=== PATIENT | male | born 1960 | race Caucasian/White ===

== ENCOUNTER → 2017-02-12 | Outpatient (CLI) | payer BC ==
[2017-02-12 11:00] LABS: ABSOLUTE BASOPHILS # (AUTO) 0.1 10^3/uL (0.0-0.2); ABSOLUTE EOSINOPHILS # (AUTO) 0.2 10^3/uL (0.0-0.6); ABSOLUTE LYMPHOCYTES (AUTO) 1.3 10^3/uL (0.5-4.7); ABSOLUTE MONOCYTES (AUTO) 0.8 10^3/uL (0.1-1.4); ABSOLUTE NEUT (AUTO) 3.6 10^3/uL (1.7-8.2); BASOPHILS % (AUTO) 1.3 % (0-2); EOSINOPHILS % (AUTO) 3.9 % (0-6); HEMATOCRIT 44.4 % (37.9-51.0); HEMOGLOBIN 15.5 g/dL (13.5-17.0); HGB HCT DIFFERENCE 2.1; LYMPHOCYTES % (AUTO) 21.5 % (13-45); MEAN CORPUSCULAR HEMOGLOBIN 34.1 pg (27.0-33.4); MEAN CORPUSCULAR VOLUME 98 fl (80-97); MONOCYTES % (AUTO) 13.2 % (3-13); RED BLOOD COUNT 4.55 10^6/uL (4.35-5.55); RED CELL DISTRIBUTION WIDTH 14.8 % (11.5-14.0); SEGMENTED NEUTROPHILS % (AUTO) 60.1 % (42-78); WHITE BLOOD COUNT 5.9 10^3/uL (4.0-10.5)
[2017-02-12 11:05] LABS: APPEARANCE,URINE CLEAR; BILIRUBIN,URINE NEGATIVE (NEGATIVE); GLUCOSE, URINE NEGATIVE (NEGATIVE); KETONES,URINE NEGATIVE (NEGATIVE); LEUKOCYTE ESTERASE,URINE NEGATIVE (NEGATIVE); NITRITE,URINE NEGATIVE (NEGATIVE); PROTEIN,URINE NEGATIVE (NEGATIVE); URINE SPECIFIC GRAVITY 1.023; UROBILINOGEN,URINE NEGATIVE mg/dL (<2.0)
[2017-02-12 11:32] LABS: ANION GAP 13 (5-19); BLOOD UREA NITROGEN 16 mg/dL (7-20); CALCIUM 9.9 mg/dL (8.4-10.2); CARBON DIOXIDE 24 mmol/L (22-30); CHLORIDE 103 mmol/L (98-107); CREATININE RESULT 0.99 mg/dL (0.52-1.25); GLUCOSE 98 mg/dL (75-110); POTASSIUM 5.1 mmol/L (3.6-5.0); SODIUM 140.1 mmol/L (137-145)
--- NOTE | 2017-02-12 12:09 | RADIOLOGY REPORT (SQ) ---
EXAM DESCRIPTION: CHEST PA/LATERAL COMPLETED DATE/TIME: 02/12/2017 10:12 am REASON FOR STUDY: PRE OP COMPARISON: None. EXAM PARAMETERS: NUMBER OF VIEWS: two views TECHNIQUE: Digital Frontal and Lateral radiographic views of the chest acquired. RADIATION DOSE: NA LIMITATIONS: none FINDINGS: LUNGS AND PLEURA: No opacities, masses or pneumothorax. No pleural effusion. MEDIASTINUM AND HILAR STRUCTURES: No masses or contour abnormalities. HEART AND VASCULAR STRUCTURES: Heart normal size. No evidence for failure. BONES: No acute findings. HARDWARE: None in the chest. OTHER: No other significant finding. IMPRESSION: NO SIGNIFICANT RADIOGRAPHIC FINDING IN THE CHEST. TECHNICAL DOCUMENTATION: JOB ID: [id number] [employer]- All Rights Reserved
--- NOTE | 2017-02-12 12:58 | EKG REPORT ---
SEVERITY:- OTHERWISE NORMAL ECG - SINUS RHYTHM LOW VOLTAGE IN FRONTAL LEADS : Confirmed by: Jeronimo Hernandez MD 12-Feb-2017 12:57:11
== END ==
LOC: OD 09:16
PROVIDERS: ATTEND Orthopaedic Surgery
DX: Z01.818 Encounter for other preprocedural examination (principal)
CPT/HCPCS: 36415; 71020; 80048; 81001; 85025; 93005; 93010

== ENCOUNTER 2017-03-08 07:49 | Inpatient (IN) | payer BC ==
[~2017-03-08 07:49] MED LIST: BUPIVACAINE INJ/PF LIPOSOME/PF 266 MG/20 ML SDV INJ PRN; CEFAZOLIN INJ 1 GM VIAL IV PRN; IBUPROFEN 800 MG in NORMAL SALINE 250 ML IV PRN; LACTATED RINGERS 1000 ML IV PRN; LANSOPRAZOLE 15 MG TAB.RAP.DR PO PRN; LIDOCAINE 0.5% INJ-PF (5 MG/ML) 50 ML SDV SUBCUT PRN; OXYCODONE HCL SR 10 MG TABLET PO PRN; VANCOMYCIN HCL 1,000 MG in DEXTROSE 5%-WATER 250 ML IV PRN
[2017-03-08] MEDS ORDERED: FENTANYL CITRATE INJ/PF 100 MCG/2 ML AMPUL ONE (08:46)
[2017-03-08] MEDS ORDERED: PROPOFOL INJ 200 MG/20 ML VIAL IV ONE ×2 (08:47→11:28)
[2017-03-08] MEDS ORDERED: TRANEXAMIC ACID INJ/PF 1,000 MG/10 ML SDV IV ONE ×2 (08:47→13:00)
[2017-03-08] MEDS ORDERED: EPHEDRINE SULFATE INJ 50 MG/1 ML AMPULE ONE (08:47)
[2017-03-08] MEDS ORDERED: MIDAZOLAM 2 MG/2 ML INJ ONE (08:47)
[2017-03-08] MEDS: THROMBIN (BOVINE) TOPICAL 20000 UNIT VIAL ONE ×2 (10:23→10:39)
[2017-03-08] MEDS: BUPIVACAINE INJ/PF LIPOSOME/PF 266 MG/20 ML SDV ONE ×2 (10:23→10:39)
[2017-03-08] MEDS: THROMBIN (BOVINE) 5000 UNIT EPITAXIS KIT ONE ×2 (10:24→10:39)
[2017-03-08] MEDS ORDERED: FENTANYL CITRATE INJ/PF 100 MCG/2 ML AMPUL IV PRN ×3 (10:32)
[2017-03-08] MEDS ORDERED: DIPHENHYDRAMINE HCL 50 MG/ML VIAL IV PRN ×2 (10:32→10:55)
[2017-03-08] MEDS ORDERED: PROMETHAZINE HCL INJ 25 MG/1 ML VIAL IV PRN (10:32)
--- NOTE | 2017-03-08 10:54 | Operative Report ---
Operative Report DATE OF SURGERY: 03/08/17 PREOPERATIVE DIAGNOSIS: Right knee arthritis OPERATION: Right knee arthroplasty SURGEON: AMANDA BLISS ANESTHESIA: Spinal TISSUE REMOVED OR ALTERED: Bone to pathology ESTIMATED BLOOD LOSS: 100 PROCEDURE: Implants used: Femur: Laron triathlon #8 CR femur Tibia: #7 tibia Tibial liner: 9 mm CS insert Patella: 40 mm oval patella Procedure with the patient supine on the operating table the right the limb is prepped and draped in a sterile fashion. The limb was elevated for exsanguination and the tourniquet inflated to 280 torr. A standard midline median parapatellar approach the knee is taken. Access is gained to the femoral canal through the intercondylar notch. Intramedullary alignment instrumentation used to resect 10 mm of distal femur in 5 of valgus. Sizing guide indicated a size 8 femur. Appropriate cutting jig is then used to fashion anterior posterior and chamfer cuts. A trial reduction femurs performed and this is judged to be adequate. Attention was next turned to the tibia. Using an extra medullary alignment system 9 millimeters was resected off the medial tibial plateau. This is sized to a size 7 tibia. A trial reduction was now performed with a 8 femur and a 7 tibia using a 9 millimeters spacer. It is full extension and central patellofemoral tracking. The articular surface the patella was next resected using an oscillating saw. All trial implants were removed. Polymethylmethacrylate is mixed and used to cement the above implants in place. On adequate curing the cement excess cement was removed the tourniquet was deflated hemostasis obtained the wound is then closed in layers using interrupted Vicryl followed by mehran. A sterile compressive dressing was applied and the patient returned to recovery room in satisfactory condition.
[2017-03-08] MEDS ORDERED: ONDANSETRON HCL INJ/PF 4 MG/2 ML SDV IV PRN (10:55)
[2017-03-08] MEDS ORDERED: ZOLPIDEM TARTRATE 5 MG TABLET PO PRN (10:55)
[2017-03-08] MEDS ORDERED: MORPHINE SULFATE 10 MG/ML INJ IV PRN ×2 (10:55)
[2017-03-08] MEDS ORDERED: ONDANSETRON 4 MG TAB.RAPDIS PO PRN (10:55)
[2017-03-08] MEDS ORDERED: ACETAMINOPHEN 325 MG TABLET PO PRN (10:55)
[2017-03-08] MEDS ORDERED: MAG HYDROX/AL HYDROX/SIMETH SUSP 30 ML UDCUP PO PRN (10:55)
[2017-03-08] MEDS ORDERED: RINGERS SOLUTION,LACTATED 1,000 ML IV PRN (10:55)
[2017-03-08] MEDS ORDERED: LORATADINE 10 MG TABLET PO PRN (11:30)
--- NOTE | 2017-03-08 12:04 | RADIOLOGY REPORT (SQ) ---
EXAM DESCRIPTION: KNEE RIGHT 2 VIEWS COMPLETED DATE/TIME: 03/08/2017 11:47 am REASON FOR STUDY: Post OP -Long Cassette in PACU M17.11 UNILATERAL PRIMARY OSTEOARTHRITIS, RIGHT KN EE COMPARISON: None. NUMBER OF VIEWS: Two view(s). TECHNIQUE: Digital radiographic images of the right knee post-procedure. LIMITATIONS: None. FINDINGS: BONES: No worrisome or unexpected findings post-procedure. DEVICE: Total knee arthroplasty SOFT TISSUES: No worrisome findings. Expected postoperative soft tissue changes. IMPRESSION: SATISFACTORY POSTOPERATIVE RIGHT KNEE. TECHNICAL DOCUMENTATION: JOB ID: [id number] [employer]- All Rights Reserved
[2017-03-08] MEDS: OXYCODONE HCL IR 5 MG TABLET PO PRN ×2 (12:56→21:27)
[2017-03-08] MEDS ORDERED: LIDOCAINE 2% INJ-PF (20 MG/ML) 2 ML AMPUL ONE (13:28)
[2017-03-08] MEDS ORDERED: DEXAMETHASONE SOD PHOSPHATE INJ 4 MG/1 ML VIAL ONE (13:28)
[2017-03-08] MEDS ORDERED: ONDANSETRON HCL INJ/PF 4 MG/2 ML SDV ONE (13:28)
[2017-03-08] MEDS ORDERED: GABAPENTIN 300 MG CAPSULE PO ONE (13:45)
[2017-03-08] MEDS ORDERED: GABAPENTIN 300 MG CAPSULE PO SCH (14:00)
[2017-03-08] MEDS ORDERED: ACETAMINOPHEN 100 ML IV ONE (16:55)
[2017-03-08] MEDS: SENNOSIDES/DOCUSATE 8.6-50 MG 1 EACH TABLET PO SCH (17:06)
[2017-03-08] MEDS: MORPHINE SULFATE 10 MG/ML INJ IM PRN (17:07)
[2017-03-08] MEDS: OXYCODONE HCL SR 10 MG TABLET PO SCH (21:27)
[2017-03-08] MEDS: METOPROLOL SUCCINATE 25 MG TAB.SR.24H PO SCH (21:27)
[2017-03-08] MEDS ORDERED: VANCOMYCIN HCL 1,000 MG in DEXTROSE 5%-WATER 250 ML IV ONE (22:55)
[2017-03-09] MEDS: OXYCODONE HCL IR 5 MG TABLET PO PRN ×2 (03:14→18:07)
[2017-03-09] MEDS: LANSOPRAZOLE 30 MG TAB.RAP.DR PO SCH (05:17)
[2017-03-09] MEDS: MORPHINE SULFATE 10 MG/ML INJ IV PRN ×2 (06:14→07:40)
[2017-03-09 06:16] LABS: HEMATOCRIT 38.1 % (37.9-51.0); HEMOGLOBIN 13.2 g/dL (13.5-17.0); HGB HCT DIFFERENCE 1.5; MEAN CORPUSCULAR HEMOGLOBIN 33.8 pg (27.0-33.4); MEAN CORPUSCULAR HGB CONC 34.7 g/dL (32.0-36.0); MEAN CORPUSCULAR VOLUME 97 fl (80-97); RED BLOOD COUNT 3.91 10^6/uL (4.35-5.55); RED CELL DISTRIBUTION WIDTH 14.4 % (11.5-14.0); WHITE BLOOD COUNT 11.3 10^3/uL (4.0-10.5)
[2017-03-09 06:31] LABS: ANION GAP 16 (5-19); BLOOD UREA NITROGEN 14 mg/dL (7-20); CALCIUM 9.5 mg/dL (8.4-10.2); CARBON DIOXIDE 25 mmol/L (22-30); CHLORIDE 96 mmol/L (98-107); CREATININE RESULT 0.91 mg/dL (0.52-1.25); GLUCOSE 109 mg/dL (75-110); POTASSIUM 4.9 mmol/L (3.6-5.0)
--- NOTE | 2017-03-09 07:04 | PDOC PROGRESS REPORT ---
Subjective Progress Note for:: 03/09/17 Subjective:: Patient complaining of pain and requiring morphine overnight Reason For Visit: RIGHT KNEE ARTHRITIS Physical Exam Vital Signs: Temp Pulse Resp BP Pulse Ox 36.8 C 72 18 125/82 97 03/09/17 04:37 03/09/17 04:37 03/09/17 04:37 03/09/17 04:37 03/09/17 04:37 Intake & Output 03/08/17 03/09/17 03/10/17 06:59 06:59 06:59 Intake Total 3991 Output Total 300 Balance 3691 General appearance: PRESENT: no acute distress Head exam: PRESENT: normocephalic Respiratory exam: PRESENT: unlabored Cardiovascular exam: PRESENT: RRR Pulses: PRESENT: +1 pedal pulses bilateral Vascular exam: PRESENT: normal capillary refill GI/Abdominal exam: PRESENT: soft Rectal exam: PRESENT: deferred Extremities exam: PRESENT: other - Right lower extremity dressing clean dry and intact. Distal neurovascular examination is intact. Neurological exam: PRESENT: alert, awake, oriented to person, oriented to place , oriented to time, oriented to situation. ABSENT: motor sensory deficit Psychiatric exam: PRESENT: appropriate affect, normal mood. ABSENT: homicidal ideation, suicidal ideation Skin exam: PRESENT: dry, intact, warm. ABSENT: cyanosis, rash Results Laboratory Results: 03/09/17 05:41 03/09/17 05:41 03/08/17 03/09/17 03/09/17 08:45 05:41 05:41 WBC 11.3 H RBC 3.91 L Hgb 13.2 L Hct 38.1 MCV 97 MCH 33.8 H MCHC 34.7 RDW 14.4 H Plt Count 227 Sodium 137.0 Potassium 4.6 4.9 Chloride 96 L Carbon Dioxide 25 Anion Gap 16 BUN 14 Creatinine 0.91 Est GFR ( Amer) > 60 Est GFR (Non-Af Amer) > 60 Glucose 109 Calcium 9.5 Impressions: Knee X-Ray 03/08/17 10:56 IMPRESSION: SATISFACTORY POSTOPERATIVE RIGHT KNEE. Status: Imported from PACS Assessment & Plan - Diagnosis (1) Arthritis of right knee Is this a current diagnosis for this admission?: Yes Plan: 56-year-old white male postop day 1 from right knee arthroplasty. Patient ambulated 200 feet yesterday. However at this point I think analgesia is enough of an issue that he is probably not ready for discharge to home today. - Time Time Spent with patient: 15-24 minutes Anticipated discharge: Home with Homehealth Within: within 24 hours
[2017-03-09] MEDS: MORPHINE SULFATE 10 MG/ML INJ IM PRN ×4 (08:37→16:42)
[2017-03-09] MEDS: OXYCODONE HCL SR 10 MG TABLET PO SCH ×2 (09:34→21:51)
[2017-03-09] MEDS: SENNOSIDES/DOCUSATE 8.6-50 MG 1 EACH TABLET PO SCH ×2 (09:37→18:02)
[2017-03-09] MEDS ORDERED: GABAPENTIN 300 MG CAPSULE PO SCH (10:00)
[2017-03-09] MEDS ORDERED: BENAZEPRIL PO SCH (10:00)
[2017-03-09] MEDS ORDERED: METOPROLOL SUCCINATE 25 MG TAB.SR.24H PO SCH ×2 (10:00→22:00)
[2017-03-09] MEDS ORDERED: BENAZEPRIL HCL 20 MG TABLET PO SCH (10:00)
[2017-03-09] MEDS ORDERED: AMLODIPINE BESYLATE 10 MG TABLET PO SCH (10:00)
[2017-03-09] MEDS ORDERED: PRENATAL VITAMIN W DHA CAPSULE PO SCH (10:00)
[2017-03-09] MEDS ORDERED: ASPIRIN 81 MG TABLET, CHEWABLE PO SCH (10:00)
[2017-03-09] MEDS ORDERED: AMLODIPINE BESYLATE PO SCH (10:00)
[2017-03-09] MEDS: METOPROLOL SUCCINATE 25 MG TAB.SR.24H PO SCH (21:51)
[2017-03-10] MEDS: OXYCODONE HCL IR 5 MG TABLET PO PRN (00:24)
[2017-03-10] MEDS: MORPHINE SULFATE 10 MG/ML INJ IV PRN ×2 (02:19→05:53)
[2017-03-10 04:19] VITALS: BP 147/55
[2017-03-10] MEDS: LANSOPRAZOLE 30 MG TAB.RAP.DR PO SCH (05:53)
[2017-03-10 07:23] LABS: HEMOGLOBIN 12.1 g/dL (13.5-17.0); HGB HCT DIFFERENCE 1.3; MEAN CORPUSCULAR HEMOGLOBIN 33.5 pg (27.0-33.4); MEAN CORPUSCULAR HGB CONC 34.5 g/dL (32.0-36.0); MEAN CORPUSCULAR VOLUME 97 fl (80-97); RED CELL DISTRIBUTION WIDTH 14.3 % (11.5-14.0); WHITE BLOOD COUNT 12.2 10^3/uL (4.0-10.5)
--- NOTE | 2017-03-10 07:23 | PDOC DISCHARGE SUMMARY ---
General - Admit/Disc Date/PCP Admission Date/Primary Care Provider: 03/08/17 07:49 SUJEY GRAHAM MD Discharge Date: 03/10/17 - Discharge Diagnosis (1) Arthritis of right knee Is this a current diagnosis for this admission?: Yes - Additional Information Resuscitation Status: Full Code Discharge Diet: As Tolerated, Regular Discharge Activity: Balance Activity w/Rest, No Driving, No tub bath Home Medications: Amlodipine Besylate/Benazepril [Amlodipine-Benazepril 5-40 mg] 1 cap PO DAILY Celecoxib [Celebrex 200 mg Capsule] 200 mg PO DAILY 03/08/17 Gabapentin [Neurontin 300 mg Capsule] 300 mg PO Q8 03/08/17 Hydrocodone/Ibuprofen [Hydrocodone-Ibuprofen 7.5-200] 1 tab PO Q12HP PRN Metoprolol Succinate [Toprol Xl 25 mg Tab.sr] 25 mg PO DAILY 03/08/17 Oxycodone HCl/Acetaminophen [Percocet 10-325 mg Tablet] 1 tab PO Q6HP PRN Aspirin [Aspirin 81 mg Chewable Tablet] 81 mg PO DAILY tab.chew 03/10/17 Gabapentin [Neurontin 300 mg Capsule] 900 mg PO DAILY capsule 03/10/17 Oxycodone HCl [Oxy-Ir 5 mg Tablet] 5 mg PO Q6HP PRN tablet 03/10/17 History of Present Illness History of Present Illness: KEN ARELLANO is a 56 year old male progressive right knee pain and functional disability secondary osteoarthritis. Patient is admitted for elective right knee arthroplasty. Hospital Course Hospital Course: Patient is admitted through the operating where he undergoes an incompetent right knee arthroplasty. He seen by physical therapy on the floor and ambulates 200 feet on the operative day. First postoperative day the patient has a considerable amount of discomfort and physical is limited by this. Analgesic medication was administered and the patient then resumes his progress with physical therapy and is ready discharge on postop day #2. Physical Exam Vital Signs: Temp Pulse Resp BP Pulse Ox 37.1 C 84 16 147/55 H 96 03/10/17 04:00 03/10/17 04:00 03/10/17 04:00 03/10/17 04:00 03/10/17 04:00 Intake & Output 03/09/17 03/10/1703/11/17 06:59 06:59 06:59 Intake Total 5091 2477 Output Total 3000 3670 Balance 2091 -1133 General appearance: PRESENT: no acute distress Head exam: PRESENT: normocephalic Respiratory exam: PRESENT: unlabored Cardiovascular exam: PRESENT: RRR Pulses: PRESENT: +1 pedal pulses bilateral Vascular exam: PRESENT: normal capillary refill GI/Abdominal exam: PRESENT: soft Rectal exam: PRESENT: deferred Extremities exam: PRESENT: other - Wrap was removed from the right lower extremity. There is some minor drainage. The underlying occlusive OpSite is changed. The wound is well approximated with mehran without erythema or current drainage. There is minimal pedal edema. Distal neurovascular examination is intact. Neurological exam: PRESENT: alert, awake, oriented to person, oriented to place , oriented to time, oriented to situation. ABSENT: motor sensory deficit Psychiatric exam: PRESENT: appropriate affect, normal mood. ABSENT: homicidal ideation, suicidal ideation Skin exam: PRESENT: dry, intact, warm. ABSENT: cyanosis, rash Results Laboratory Results: 03/09/17 05:41 03/09/17 05:41 Impressions: Knee X-Ray 03/08/17 10:56 IMPRESSION: SATISFACTORY POSTOPERATIVE RIGHT KNEE. Status: Imported from PACS Plan Discharge Plan: Patient to be discharged home with home health nursing. Patient will attend outpatient physical therapy. Patient will return to see Dr. Cornell in the [facility] for surgery in 2 weeks for staple removal.
== END 2017-03-10 09:00 | disposition home health service (06) | DRG 470 ==
LOC: INOR 07:49 → 4S 12:28
PROVIDERS: ADMIT Orthopaedic Surgery; ATTEND Orthopaedic Surgery
PROC: 0SRC069 Replacement of Right Knee Joint with Oxidized Zirconium on Polyethylene Synthetic Substitute, Cemented, Open Approach (ICD-10-PCS; principal; 2017-03-08 10:00)
DX: M17.11 Unilateral primary osteoarthritis, right knee (principal); Z79.899 Other long term (current) drug therapy
CPT/HCPCS: 01402; 36415; 80048; 84132; 85027; 88305; 88311; 94799; C2625; C9290; J0131; J0690; J1100; J1741; J2250; J2270; J2405; J2704; J3010; J3370; J3490; J7050; J7060

== ENCOUNTER 2017-06-20 08:32 | Emergency (ER) | payer BC ==
--- NOTE | 2017-06-20 09:43 | ER Document Report ---
HPI - HPI Pain Level: 2 Notes: Patient is a 57-year-old male with a history of hypertension who presents to the ED complaining of right lateral lower leg redness, pain, and sensitivity 2 months, but increased over the last several days. Patient states that he had some clear weeping from the area and was given Keflex at that time. Patient states that overall the skin has improved with the antibiotic, but he continues to have discomfort and wants an x-ray as they were told that there is concern that it could turn into an osteomyelitis. Patient states that he has sensitivity to light touch, but feels like it is a 'deep bruise.' Patient states that he did have right knee surgery somewhat recently in the last 6 months, but has not had any issues with his knee since then. He is eating and drinking without difficulties. He is urinating normally and having normal bowel movements. Patient has not had any other recent illness. He has not noticed any abscess or red streaks. Denies any smoking or IV drug use. Denies any headache, fever, neck pain, URI, sore throat, chest pain, palpitations, syncope, cough, shortness of breath, wheeze, dyspnea, abdominal pain, nausea/ vomiting/diarrhea, urinary retention, dysuria, hematuria, loss of control of bowel or bladder, numbness/tingling, saddle anesthesia, muscle paralysis/ weakness. - ROS Systems Reviewed and Negative: Yes All other systems reviewed and negative - CONSTITUTIONAL Constitutional: DENIES: Fever, Chills - CARDIOVASCULAR Cardiovascular: DENIES: Chest pain - RESPIRATORY Respiratory: DENIES: Trouble Breathing, Coughing - REPRODUCTIVE Reproductive: DENIES: : - MUSCULOSKELETAL Musculoskeletal: REPORTS: Extremity pain - RLE Past Medical History - Social History Smoking Status: Unknown if Ever Smoked Family History: Reviewed & Not Pertinent Patient has suicidal ideation: No Patient has homicidal ideation: No - Past Medical History Cardiac Medical History: Reports: Hx Hypercholesterolemia, Hx Hypertension Denies: Hx Atrial Fibrillation, Hx Congestive Heart Failure, Hx Coronary Artery Disease, Hx Heart Attack, Hx Peripheral Vascular Disease, Hx Heart Murmur Renal/ Medical History: Denies: Hx Peritoneal Dialysis GI Medical History: Reports: Hx Gastroesophageal Reflux Disease. Denies: Hx Crohn's Disease, Hx Hiatal Hernia, Hx Irritable Bowel, Hx Liver Failure, Hx Pancreatitis, Hx Ulcer Musculoskeltal Medical History: Reports Hx Arthritis - knee, back, Denies Hx Fibromyalgia, Denies Hx Muscular Dystrophy Psychiatric Medical History: Reports: Hx Anxiety Traumatic Medical History: Denies: Hx Fractures Past Surgical History: Reports: Hx Orthopedic Surgery - Back x 4, Right Knee, Right Hip. Denies: Hx Appendectomy, Hx Bowel Surgery, Hx Cholecystectomy, Hx Colostomy, Hx Coronary Artery Bypass Graft, Hx Gastric Bypass Surgery, Hx Herniorrhaphy, Hx Pacemaker, Hx Tonsillectomy Vertical Provider Document - CONSTITUTIONAL Agree With Documented VS: Yes Notes: PHYSICAL EXAMINATION: GENERAL: Well-appearing, well-nourished and in no acute distress. NECK: Normal range of motion, supple without lymphadenopathy LUNGS: Breath sounds clear to auscultation bilaterally and equal. No wheezes rales or rhonchi. HEART: Regular rate and rhythm without murmurs, rubs, gallops. Musculoskeletal: Rt Leg: FROM to passive/active. Strength 5+/5. N/V intact distal. + sensitivity to the area on the leg to light touch. Extremities: trace- 1+ pitting edema b/l. Peripheral pulses 2+. Capillary refill less than 3 seconds. Shannon neg b/l. No calf erythema/tenderness/ swelling. NEUROLOGICAL: Normal speech, normal gait. Normal sensory, motor exams PSYCH: Normal mood, normal affect. SKIN: Rt lower lateral leg (unilateral): there is a pink color to the skin with some skin flaking at the site with minimal to no warmth when compared to the other side. There are a couple scabs from where the skin was 'leaking.' There is no abscess, induration, cord, or streaks. - INFECTION CONTROL TRAVEL OUTSIDE OF THE [place] IN LAST 30 DAYS: No - RESPIRATORY O2 Sat by Pulse Oximetry: 96 Course - Re-evaluation Re-evalutation: 06/20/17 10:24 Patient is an afebrile, well-hydrated, 57-year-old male who presents to the ED with right lower leg pain, I suspect possible mild cellulitis versus venous insufficiency. Vitals are acceptable. PE is otherwise unremarkable. X-ray was unremarkable for any acute pathology. Patient is already taking Keflex. I will add Bactrim to this regimen for now. Low suspicion for any sepsis, meningitis, peripheral arterial disease, osteomyelitis, necrotizing fasciitis, fracture, DVT, or other systemic emergent condition at this time. Recommend conservative measures otherwise for symptoms with close monitoring. Recheck with your PCM in 3-5 days. Return to the ED with any worsening/concerning symptoms otherwise as reviewed discharge. Patient is in agreement. - Vital Signs Vital signs: Temp Pulse Resp BP Pulse Ox 98.3 F 84 15 154/95 H 96 06/20/17 08:40 06/20/17 08:40 06/20/17 08:40 06/20/17 08:40 06/20/17 08:40 Discharge - Discharge Clinical Impression: Cellulitis Qualifiers: Site of cellulitis: extremity Site of cellulitis of extremity: lower extremity Laterality: right Qualified Code(s): L03.115 - Cellulitis of right lower limb Condition: Stable Disposition: HOME, SELF-CARE Instructions: Antibiotic Ointment Protection ([facility]), Soap Cleansing ([facility]) Additional Instructions: Keep the skin clean Wash with soap and water Tylenol/ibuprofen if needed Triple antibiotic ointment daily Take medication as directed Monitor for any worsening symptoms Epsom salt soaks may help Recheck with your PCM in 3-5 days Return to the ED with any worsening symptoms and/or development of fever, headache, chest pain, palpitations, syncope, shortness of breath, trouble breathing, abdominal pain, n/v/d, abscess, purulent discharge, red streaks, worsening swelling, or other worsening symptoms that are concerning to you. Prescriptions: Sulfamethoxazole/Trimethoprim [Bactrim Ds Tablet] 1 each PO BID #20 tablet Forms: Elevated Blood Pressure Referrals: SUJEY GRAHAM MD [Primary Care Provider] - Follow up in 3-5 days
--- NOTE | 2017-06-20 10:20 | RADIOLOGY REPORT (SQ) ---
EXAM DESCRIPTION: TIBIA FIBULA RIGHT COMPLETED DATE/TIME: 06/20/2017 9:30 am REASON FOR STUDY: rt lower leg pain COMPARISON: None. NUMBER OF VIEWS: Two views. TECHNIQUE: Two radiographic images acquired of the right tibia and fibula to include the knee and an kle in at least one projection. LIMITATIONS: None. FINDINGS: MINERALIZATION: Osteopenic BONES: No acute fracture or dislocation. No worrisome bone lesions. SOFT TISSUES: No obvious swelling or foreign body. OTHER: Total knee replacement with patellar resurfacing. No lucency around the hardware worrisome fo r hardware loosening. IMPRESSION: NEGATIVE STUDY OF THE RIGHT TIBIA AND FIBULA. NO RADIOGRAPHIC EVIDENCE OF ACUTE INJURY. TECHNICAL DOCUMENTATION: JOB ID: [id number] [employer]- All Rights Reserved Reading location - IP/workstation name: [email or web address]
[2017-06-20 10:33] VITALS: BP 139/87
== END 2017-06-20 10:50 | disposition home or self-care (01) ==
LOC: ER 08:32
DX: L03.115 Cellulitis of right lower limb (principal); R60.0 Localized edema; I10 Essential (primary) hypertension; Z98.890 Other specified postprocedural states
CPT/HCPCS: 99283

== ENCOUNTER 2019-02-08 09:07 | Observation (INO) | payer BC ==
[2019-02-08] MEDS ORDERED: ACETAMINOPHEN 325 MG TABLET PO ONE (10:23)
[2019-02-08 10:31] LABS: HEMATOCRIT 44.5 % (37.9-51.0); HEMOGLOBIN 15.3 g/dL (13.5-17.0); MEAN CORPUSCULAR HEMOGLOBIN 34.6 pg (27.0-33.4); MEAN CORPUSCULAR HGB CONC 34.4 g/dL (32.0-36.0); MEAN CORPUSCULAR VOLUME 101 fl (80-97); PLATELET COUNT 197 10^3/uL (150-450); RED BLOOD COUNT 4.42 10^6/uL (4.35-5.55); RED CELL DISTRIBUTION WIDTH 14.2 % (11.5-14.0)
[2019-02-08 10:42] LABS: ALBUMIN 4.8 g/dL (3.5-5.0); ALKALINE PHOSPHATASE 88 U/L (38-126); ANION GAP 14 (5-19); ASPARTATE AMINO TRANSFERASE 54 U/L (17-59); BILIRUBIN,DIRECT 0.2 mg/dL (0.0-0.4); BILIRUBIN,TOTAL 0.6 mg/dL (0.2-1.3); BLOOD UREA NITROGEN 16 mg/dL (7-20); CALCIUM 10.1 mg/dL (8.4-10.2); CARBON DIOXIDE 24 mmol/L (22-30); CHLORIDE 100 mmol/L (98-107); GLUCOSE 107 mg/dL (75-110); POTASSIUM 4.9 mmol/L (3.6-5.0); TOTAL PROTEIN 7.8 g/dL (6.3-8.2)
[2019-02-08 10:53] LABS: ABSOLUTE LYMPHOCYTES# (MANUAL) 1.5 10^3/uL (0.5-4.7); ABSOLUTE MONOCYTES # (MANUAL) 1.7 10^3/uL (0.1-1.4); BAND NEUTROPHILS % (MANUAL) 1 % (3-5); BASOPHILS % (MANUAL) 1 % (0-2); EOSINOPHILS % (MANUAL) 1 % (0-6); LYMPHOCYTES % (MANUAL) 10 % (13-45); MONOCYTES % (MANUAL) 11 % (3-13); SEGMENTED NEUTROPHILS % (MAN) 76 % (42-78); TOTAL CELLS COUNTED 100
[2019-02-08 10:54] LABS: ANISOCYTOSIS SLIGHT; PLATELET COMMENT ADEQUATE; POLYCHROMASIA SLIGHT
[2019-02-08 10:55] LABS: APPEARANCE,URINE CLEAR; BILIRUBIN,URINE NEGATIVE (NEGATIVE); COLOR,URINE YELLOW; GLUCOSE, URINE NEGATIVE (NEGATIVE); KETONES,URINE TRACE mg/dL (NEGATIVE); LEUKOCYTE ESTERASE,URINE NEGATIVE (NEGATIVE); NITRITE,URINE NEGATIVE (NEGATIVE); PROTEIN,URINE NEGATIVE (NEGATIVE); URINE SPECIFIC GRAVITY 1.019; UROBILINOGEN,URINE NEGATIVE mg/dL (<2.0)
[2019-02-08] MEDS ORDERED: FENTANYL CITRATE INJ/PF 100 MCG/2 ML AMPUL IV ONE ×2 (11:15→12:50)
--- NOTE | 2019-02-08 11:31 | ER Document Report ---
ED General - General Chief Complaint: Abdominal Pain Stated Complaint: ABDOMINAL PAIN Time Seen by Provider: 02/08/19 11:14 Mode of Arrival: Ambulatory Information source: Patient Notes: This 58-year-old male history of diverticulitis presents emergency department with complaints of left lower quad abdominal pain that started yesterday. Reports he had a bowel movement at 1600 yesterday and no bowel movement this a.m. Denies nausea vomiting. Upon arrival patient spiked a fever. He reports he is feeling cold and hot. TRAVEL OUTSIDE OF THE [place] IN LAST 30 DAYS: No - HPI Onset: Yesterday Onset/Duration: Sudden Quality of pain: Achy, Pressure Severity: Severe Pain Level: 5 Associated symptoms: denies: Nausea, Vomiting Exacerbated by: Denies Relieved by: Denies Similar symptoms previously: Yes - hx of diverticulitis - Related Data Allergies/Adverse Reactions: ciprofloxacin [From Cipro] Allergy (Intermediate, Verified 02/08/19 15:55) Hallucinations metronidazole [From Flagyl] Allergy (Verified 02/08/19 15:56) Past Medical History - General Information source: Patient - Social History Smoking Status: Never Smoker Cigarette use (# per day): No Chew tobacco use (# tins/day): No Frequency of alcohol use: None Drug Abuse: None Lives with: Family Family History: Reviewed & Not Pertinent Patient has suicidal ideation: No Patient has homicidal ideation: No - Past Medical History Cardiac Medical History: Reports: Hx Hypercholesterolemia, Hx Hypertension Denies: Hx Atrial Fibrillation, Hx Congestive Heart Failure, Hx Coronary Artery Disease, Hx Heart Attack, Hx Peripheral Vascular Disease, Hx Heart Murmur Renal/ Medical History: Denies: Hx Peritoneal Dialysis GI Medical History: Reports: Hx Diverticulitis, Hx Gastroesophageal Reflux Disease. Denies: Hx Crohn's Disease, Hx Hiatal Hernia, Hx Irritable Bowel, Hx Liver Failure, Hx Pancreatitis, Hx Ulcer Musculoskeletal Medical History: Reports Hx Arthritis - knee, back, Denies Hx Fibromyalgia, Denies Hx Muscular Dystrophy Psychiatric Medical History: Reports: Hx Anxiety Traumatic Medical History: Denies: Hx Fractures Past Surgical History: Reports: Hx Oral Surgery, Hx Orthopedic Surgery - Back x 4, Right Knee, Right Hip. Denies: Hx Appendectomy, Hx Bowel Surgery, Hx Cholecystectomy, Hx Colostomy, Hx Coronary Artery Bypass Graft, Hx Gastric Bypass Surgery, Hx Herniorrhaphy, Hx Pacemaker, Hx Tonsillectomy Review of Systems - Review of Systems Notes: Review HPI for review of systems., All other systems negative Physical Exam - Vital signs Vitals: Temp Pulse Resp BP Pulse Ox 99.4 F 87 18 145/76 H 98 02/08/19 09:17 02/08/19 09:17 02/08/19 09:17 02/08/19 09:17 02/08/19 09:17 - General General appearance: Alert, Anxious In distress: Moderate - HEENT Head: Normocephalic Eyes: Normal Conjunctiva: Normal Extraocular movements intact: Yes Nasal: Normal Mouth/Lips: Normal Mucous membranes: Normal, Moist Neck: Normal, Supple. No: Lymphadenopathy - Respiratory Respiratory status: No respiratory distress Chest status: Nontender Breath sounds: Normal Chest palpation: Normal - Cardiovascular Rhythm: Regular Heart sounds: Normal auscultation Murmur: No - Abdominal Inspection: Normal Distension: Distended Bowel sounds: Hyperactive Tenderness: Tender Organomegaly: No organomegaly - Back Back: Normal - Extremities General upper extremity: Normal ROM, Normal strength General lower extremity: Normal ROM, Normal strength - Neurological Neuro grossly intact: Yes Cognition: Normal Orientation: AAOx4 Kat Coma Scale Eye Opening: Spontaneous [place] Coma Scale Verbal: Oriented Kat Coma Scale Motor: Obeys Commands Kat Coma Scale Total: 15 Speech: Normal - Psychological Associated symptoms: Normal affect, Normal mood - Skin Skin Temperature: Warm Skin Moisture: Dry Skin Color: Normal Course - Re-evaluation Re-evalutation: 02/08/19 12:51 58-year-old male with history of diverticulitis high blood pressure presents emergency department with left lower quad abdominal pain that started yesterday. Reports he had 2 bowel movements since yesterday no relief of symptoms. Reports he had diverticulitis proximal he 3 years ago was treated with Cipro and Flagyl. Reports he took the medication for maybe 3 days and quit taking it because he started having hallucinations. Denies fever. Although upon arrival he did have a low-grade temp that went up to 101.3. Tylenol was given at that time. Upon arrival into the room patient had his sweating due to the pain. Reports he is having hot and cold flashes. Very tender left lower quad. CT of the abdomen was ordered. CT report reflects negative diverticulitis, positive hepatomegaly. Leukocytosis noted 15.0. Patient was given fentanyl for the pain reports it did relieve some of the pain but upon reassessment reports pain is back. Very very tender left lower quadrant. Consulted my attending Dr. Conley who did assess patient advises admission. Dr. Heck was consulted for admission, after discussion he advised me to call Dr. Murry for admission. Dr. Flynn contacted will come see patient in the emergency department. 02/08/19 13:[address] Patient and updated on CT negative for diverticulitis and on plan of care for admission.. Fluids running patient received another dose of fentanyl for pain reports he is feeling better. 02/08/19 09:38 02/08/19 09:38 MCV 101 fl (80-97) H 02/08/19 09:38 MCH 34.6 pg (27.0-33.4) H 02/08/19 09:38 MCHC 34.4 g/dL (32.0-36.0) 02/08/19 09:38 RDW 14.2 % (11.5-14.0) H 02/08/19 09:38 Seg Neutrophils % Not Reportable 02/08/19 09:38 Chloride 100 mmol/L (98-107) 02/08/19 09:38 Carbon Dioxide 24 mmol/L (22-30) 02/08/19 09:38 Anion Gap 14 (5-19) 02/08/19 09:38 Est GFR ( Amer) > 60 (>60) 02/08/19 09:38 Glucose 107 mg/dL (75-110) 02/08/19 09:38 Lactic Acid 1.1 mmol/L (0.7-2.1) 02/08/19 10:50 Calcium 10.1 mg/dL (8.4-10.2) 02/08/19 09:38 Total Bilirubin 0.6 mg/dL (0.2-1.3) 02/08/19 09:38 AST 54 U/L (17-59) 02/08/19 09:38 Alkaline Phosphatase 88 U/L (38-126) 02/08/19 09:38 Total Protein 7.8 g/dL (6.3-8.2) 02/08/19 09:38 Albumin 4.8 g/dL (3.5-5.0) 02/08/19 09:38 Lipase 117.6 U/L (23-300) 02/08/19 09:38 Urine Color YELLOW 02/08/19 09:36 Urine Appearance CLEAR 02/08/19 09:36 Urine pH 5.0 (5.0-9.0) 02/08/19 09:36 Ur Specific [place] 1.019 02/08/19 09:36 Urine Protein NEGATIVE mg/dL (NEGATIVE) 02/08/19 09:36 Urine Glucose (UA) NEGATIVE mg/dL (NEGATIVE) 02/08/19 09:36 Urine Ketones TRACE mg/dL (NEGATIVE) H 02/08/19 09:36 Urine Blood NEGATIVE (NEGATIVE) 02/08/19 09:36 Urine Nitrite NEGATIVE (NEGATIVE) 02/08/19 09:36 Ur Leukocyte Esterase NEGATIVE (NEGATIVE) 02/08/19 09:36 Urine WBC (Auto) 0 /HPF 02/08/19 09:36 Urine RBC (Auto) 0 /HPF 02/08/19 09:36 Abdomen/Pelvis CT 02/08/19 11:16 IMPRESSION: Fatty infiltrated liver. Hepatomegaly. No other significant findings in the abdomen or pelvis. - Vital Signs Vital signs: Temp Pulse Resp BP Pulse Ox 100.5 F H 87 20 142/75 H 98 02/08/19 18:08 02/08/19 15:35 02/08/19 15:35 02/08/19 15:35 02/08/19 15:35 - Laboratory Result Diagrams: 02/08/19 09:38 02/08/19 09:38 Laboratory results interpreted by me: 02/08/19 02/08/19 09:36 09:38 WBC 15.0 H MCV 101 H MCH 34.6 H RDW 14.2 H Band Neutrophils % 1 L Lymphocytes % (Manual) 10 L Abs Neuts (Manual) 11.6 H Abs Monocytes (Manual) 1.7 H Urine Ketones TRACE H - Diagnostic Test Radiology reviewed: Image reviewed, Reports reviewed - Consults yang Time consulted: 13:10 Reason for consultation: 02/08/19 13:19 LLQ abdominal pain, diverticulitis Consulted provider: will come to ER Discharge - Discharge Clinical Impression: Diverticulitis Abdominal pain Qualifiers: Abdominal location: left lower quadrant Qualified Code(s): R10.32 - Left lower quadrant pain Condition: Stable Disposition: ADMITTED INPATIENT Admitting Provider: Yang (Hospitalist) Unit Admitted: Medical Floor
--- NOTE | 2019-02-08 12:31 | RADIOLOGY REPORT (SQ) ---
EXAM DESCRIPTION: CT ABD/PELVIS WITH IV ONLY COMPLETED DATE/TIME: 02/08/2019 12:07 pm REASON FOR STUDY: abd pain, fever COMPARISON: 10/23/2015 TECHNIQUE: CT scan of the abdomen and pelvis performed using helical scanning technique with dynamic intravenous contrast injection. No oral contrast. Images reviewed with lung, soft tissue, and bone windows. Reconstructed coronal and sagittal MPR images reviewed. Delayed images for evaluation of the urinary system also acquired. All images stored on PACS. All CT scanners at this facility use dose modulation, iterative reconstruction, and/or weight based d osing when appropriate to reduce radiation dose to as low as reasonably achievable (ALARA). [facility]: Dose Right [facility]: CareDose [facility]: Dose Right [facility]: Teradose 4D [facility]: 8020 Media CONTRAST TYPE AND DOSE: contrast/concentration: Isovue 350.00 mg/ml; Total Contrast Delivered: 100.0 ml; Total Saline Delivered: 45.7 ml RENAL FUNCTION: BUN 16, creatinine 0.82 RADIATION DOSE: CT Rad equipment meets quality standard of care and radiation dose reduction techniq ues were employed. CTDIvol: 27.9 - 31.9 mGy. DLP: 3301 mGy-cm.. LIMITATIONS: None. FINDINGS: LOWER CHEST: No significant findings. No nodules or infiltrates. LIVER: There is decreased attenuation throughout the liver consistent with fatty infiltration. There is hepatomegaly. The liver measures approximately 21 cm in cranial caudal dimensions. SPLEEN: Normal size. No focal lesions. PANCREAS: No masses. No significant calcifications. No adjacent inflammation or peripancreatic fluid collections. Pancreatic duct not dilated. GALLBLADDER: No identified stones by CT criteria. No inflammatory changes to suggest cholecystitis. ADRENAL GLANDS: No significant masses or asymmetry. RIGHT KIDNEY AND URETER: No solid masses. No significant calcifications. No hydronephrosis or hyd roureter. LEFT KIDNEY AND URETER: No solid masses. No significant calcifications. No hydronephrosis or hydr oureter. AORTA AND VESSELS: No aneurysm. No dissection. Renal arteries, SMA, celiac without stenosis. RETROPERITONEUM: No retroperitoneal adenopathy, hemorrhage or masses. BOWEL AND PERITONEAL CAVITY: No masses or inflammatory changes. No free fluid or peritoneal masses. APPENDIX: Normal. PELVIS: No mass. No free fluid. Normal bladder. ABDOMINAL WALL: No masses. No hernias. BONES: Postsurgical changes in the right hip. OTHER: No other significant finding. IMPRESSION: Fatty infiltrated liver. Hepatomegaly. No other significant findings in the abdomen or pelvis. TECHNICAL DOCUMENTATION: JOB ID: [id number] Quality ID # [id number]: Final reports with documentation of one or more dose reduction techniques (e.g., Au tomated exposure control, adjustment of the mA and/or kV according to patient size, use of iterative reconstruction technique) 2010 [employer]- All Rights Reserved Reading location - IP/workstation name: [email or web address]
[2019-02-08] MEDS ORDERED: PIPERACILLIN/TAZOBACTAM 3.375 GM VIAL IV ONE (12:50)
[2019-02-08] MEDS ORDERED: NORMAL SALINE 1000 ML 1,000 ML IV ONE (12:50)
[2019-02-08] MEDS: MORPHINE SULFATE 10 MG/ML INJ IV PRN ×2 (15:20→22:12)
--- NOTE | 2019-02-08 15:28 | PDOC H&P ---
History of Present Illness Admission Date/PCP: SUJEY GRAHAM MD History of Present Illness: KEN ARELLANO is a 58 year old male with a past medical history of descending colon diverticulosis diagnosed on CT and colonoscopy, history of diverticulitis, gout, hypertension, GERD and back surgeries who presented with left lower quadrant pain. Patient says that he was apparently fine until yesterday around 4 PM when he developed sharp/achy left lower quadrant pain and tenderness. He says that this was the same pain that he had in 2016 when he was diagnosed to have acute diverticulitis. He denies diarrhea or bloody stools. No nausea or vomiting. He did report of having fever and chills at home. He denies lower urinary tract symptoms. He was given fentanyl in the ER but still complaining of pain and tenderness. CT of the abdomen and pelvis did not show acute diverticulitis. Upon examination, he does have localized direct tenderness in the left lower quadrant. He also was found to be febrile in the ER and was also noted to have leukocytosis. Suspect beginning/early acute diverticulitis. Past Medical History Cardiac Medical History: Reports: Hyperlipidema, Hypertension Denies: Atrial Fibrillation, Congestive Heart Failure, Coronary Artery Disease, Myocardial Infarction, Peripheral Vascular Disease, Heart Murmur GI Medical History: Reports: Diverticulitis, Gastroesophageal Reflux Disease Denies: Crohn's Disease, Hiatal Hernia Musculoskeltal Medical History: Reports: Arthritis - knee, back Denies: Fibromyalgia Past Surgical History Past Surgical History: Reports: Orthopedic Surgery - Back x 4, Right Knee, Right Hip Denies: Appendectomy, Cholecystectomy, Colostomy, Coronary Artery Bypass Graft, Gastric Bypass Surgery, Herniorrhaphy, Pacemaker, Tonsillectomy Social History Lives with: Family Smoking Status: Never Smoker Electronic Cigarette use?: No Hx Recreational Drug Use: No Hx Prescription Drug Abuse: No Family History Family History: Reviewed & Not Pertinent Parental Family History Reviewed: Yes - No premature CAD Children Family History Reviewed: No Sibling(s) Family History Reviewed.: No Medication/Allergy Home Medications: Allopurinol [Zyloprim 300 mg Tablet] 300 mg PO DAILY 02/08/19 Amlodipine Besylate [Norvasc 10 mg Tablet] 10 mg PO DAILY 02/08/19 Azilsartan Medoxomil [Edarbi] 80 mg PO DAILY 02/08/19 Meloxicam [Mobic] 7.5 mg PO DAILY PRN 02/08/19 Metoprolol Succinate [Toprol Xl 50 mg Tab.sr] 50 mg PO QHS 02/08/19 Allergies/Adverse Reactions: ciprofloxacin [From Cipro] Allergy (Verified 02/08/19 09:21) Review of Systems All systems: reviewed and no additional remarkable complaints except as stated - As mentioned in HPI Physical Exam Vital Signs: Temp Pulse Resp BP Pulse Ox 101.3 F H 87 18 145/76 H 98 02/08/19 10:10 02/08/19 09:17 02/08/19 09:17 02/08/19 09:17 02/08/19 09:17 Intake & Output 02/07/19 02/08/19 02/09/19 06:59 06:59 06:59 Weight 306 lb 7.08 oz General appearance: PRESENT: no acute distress, well-developed, well-nourished Head exam: PRESENT: atraumatic, normocephalic Eye exam: PRESENT: conjunctiva pink, EOMI, PERRLA. ABSENT: scleral icterus Ear exam: PRESENT: normal external ear exam Mouth exam: PRESENT: moist, tongue midline Neck exam: ABSENT: carotid bruit, JVD, lymphadenopathy, thyromegaly Respiratory exam: PRESENT: clear to auscultation josé luis. ABSENT: rales, rhonchi, wheezes Cardiovascular exam: PRESENT: RRR. ABSENT: diastolic murmur, rubs, systolic murmur Pulses: PRESENT: normal dorsalis pedis pul GI/Abdominal exam: PRESENT: normal bowel sounds, soft, tenderness - +direct LLQ tenderness. ABSENT: distended, guarding, mass, organolmegaly, rebound Rectal exam: PRESENT: deferred Extremities exam: PRESENT: full ROM. ABSENT: calf tenderness, clubbing, pedal edema Neurological exam: PRESENT: alert, awake, oriented to person, oriented to place, oriented to time, oriented to situation, CN II-XII grossly intact. ABSENT: motor sensory deficit Results Laboratory Results: 02/08/19 09:38 02/08/19 09:38 02/08/19 02/08/19 02/08/19 09:36 09:38 09:38 WBC 15.0 H RBC 4.42 Hgb 15.3 Hct 44.5 MCV 101 H MCH 34.6 H MCHC 34.4 RDW 14.2 H Plt Count 197 Seg Neutrophils % Not Reportable Sodium 137.6 Potassium 4.9 Chloride 100 Carbon Dioxide 24 Anion Gap 14 BUN 16 Creatinine 0.82 Est GFR ( Amer) > 60 Glucose 107 Lactic Acid Calcium 10.1 Total Bilirubin 0.6 AST 54 Alkaline Phosphatase 88 Total Protein 7.8 Albumin 4.8 Lipase 117.6 Urine Color YELLOW Urine Appearance CLEAR Urine pH 5.0 Ur Specific [place] 1.019 Urine Protein NEGATIVE Urine Glucose (UA) NEGATIVE Urine Ketones TRACE H Urine Blood NEGATIVE Urine Nitrite NEGATIVE Ur Leukocyte Esterase NEGATIVE Urine WBC (Auto) 0 Urine RBC (Auto) 0 02/08/19 10:50 WBC RBC Hgb Hct MCV MCH MCHC RDW Plt Count Seg Neutrophils % Sodium Potassium Chloride Carbon Dioxide Anion Gap BUN Creatinine Est GFR ( Amer) Glucose Lactic Acid 1.1 Calcium Total Bilirubin AST Alkaline Phosphatase Total Protein Albumin Lipase Urine Color Urine Appearance Urine pH Ur Specific [place] Urine Protein Urine Glucose (UA) Urine Ketones Urine Blood Urine Nitrite Ur Leukocyte Esterase Urine WBC (Auto) Urine RBC (Auto) Impressions: Abdomen/Pelvis CT 02/08/19 11:16 IMPRESSION: Fatty infiltrated liver. Hepatomegaly. No other significant findings in the abdomen or pelvis. Assessment and Plan - Diagnosis (1) Acute diverticulitis Is this a current diagnosis for this admission?: Yes Plan: Suspect beginning/early acute diverticulitis. He and reports that when he was discharged on ciprofloxacin before, he developed agitation and restlessness from the ciprofloxacin. He was given Zosyn in the ER. We will continue Zosyn for now. (2) Hypertension Is this a current diagnosis for this admission?: Yes Plan: Resume home medications. - Time Time Spent with patient: 25-34 minutes
--- NOTE | 2019-02-08 15:32 | ADVANCED CARE ---
- Diagnosis (1) Acute diverticulitis Diagnosis Current: Yes (2) Hypertension Diagnosis Current: Yes Resuscitation Status: Full Code Discussion: Discussed with patient and at the bedside. He says he is a full code and prefers to receive chest compressions, defibrillation or mechanical ventilation if the need arises. He says that his , Jennifer is his surrogate medical decision maker.
[2019-02-08] MEDS ORDERED: KETOROLAC TROMETHAMINE INJ/PF 30 MG/1 ML SDV ONE (17:23)
[2019-02-08] MEDS ORDERED: ACETAMINOPHEN 325 MG TABLET ONE (17:45)
[2019-02-08] MEDS: PIPERACILLIN SODIUM/TAZOBACTAM 3.375 GM in NORMAL SALINE 100 ML IV SCH (18:14)
[2019-02-08] MEDS ORDERED: MELOXICAM 7.5 MG TABLET PO PRN (19:01)
[2019-02-08] MEDS ORDERED: KETOROLAC TROMETHAMINE INJ/PF 30 MG/1 ML SDV IV PRN (19:03)
[2019-02-08] MEDS ORDERED: ACETAMINOPHEN 325 MG TABLET PO PRN (19:03)
[2019-02-08] MEDS ORDERED: METOPROLOL SUCCINATE 50 MG TAB.SR.24H PO SCH (22:00)
[2019-02-08] MEDS: HEPARIN SOD (PORCINE) 5,000 UNIT/ML 1 ML VIAL SUBCUT SCH (22:11)
[2019-02-09] MEDS: PIPERACILLIN SODIUM/TAZOBACTAM 3.375 GM in NORMAL SALINE 100 ML IV SCH ×3 (00:38→11:07)
[2019-02-09] MEDS: HEPARIN SOD (PORCINE) 5,000 UNIT/ML 1 ML VIAL SUBCUT SCH (09:54)
[2019-02-09] MEDS ORDERED: AMLODIPINE BESYLATE 10 MG TABLET PO SCH (10:00)
[2019-02-09] MEDS ORDERED: ALLOPURINOL 300 MG TABLET PO SCH (10:00)
[2019-02-09 10:40] VITALS: BP 142/75
[2019-02-09 11:05] LABS: ABSOLUTE BASOPHILS # (AUTO) 0.1 10^3/uL (0.0-0.2); ABSOLUTE EOSINOPHILS # (AUTO) 0.2 10^3/uL (0.0-0.6); ABSOLUTE LYMPHOCYTES (AUTO) 1.1 10^3/uL (0.5-4.7); ABSOLUTE MONOCYTES (AUTO) 0.9 10^3/uL (0.1-1.4); ABSOLUTE NEUT (AUTO) 6.8 10^3/uL (1.7-8.2); BASOPHILS % (AUTO) 0.6 % (0-2); EOSINOPHILS % (AUTO) 1.9 % (0-6); HEMATOCRIT 41.4 % (37.9-51.0); HEMOGLOBIN 14.3 g/dL (13.5-17.0); LYMPHOCYTES % (AUTO) 12.5 % (13-45); MEAN CORPUSCULAR HEMOGLOBIN 34.7 pg (27.0-33.4); MEAN CORPUSCULAR HGB CONC 34.5 g/dL (32.0-36.0); MEAN CORPUSCULAR VOLUME 101 fl (80-97); MONOCYTES % (AUTO) 9.5 % (3-13); PLATELET COUNT 185 10^3/uL (150-450); RED BLOOD COUNT 4.11 10^6/uL (4.35-5.55); RED CELL DISTRIBUTION WIDTH 14.3 % (11.5-14.0); SEGMENTED NEUTROPHILS % (AUTO) 75.5 % (42-78); TOTAL CELLS COUNTED % (AUTO) 100 %
--- NOTE | 2019-02-09 18:26 | PDOC DISCHARGE SUMMARY ---
Impression - Admit/DC Date/PCP Admission Date/Primary Care Provider: 02/08/19 14:05 SUJEY GRAHAM MD Discharge Date: 02/09/19 - Discharge Diagnosis (1) Acute diverticulitis Is this a current diagnosis for this admission?: Yes (2) Hypertension Is this a current diagnosis for this admission?: Yes - Additional Information Resuscitation Status: Full Code Discharge Activity: Activity As Tolerated, Balance Activity w/Rest Referrals: SUJEY GRAHAM MD [Primary Care Provider] - Follow up as needed (L/M ABOUT APPT) Prescriptions: Losartan Potassium [Cozaar] 25 mg PO DAILY #60 tablet Metronidazole [Flagyl 500 mg Tablet] 500 mg PO Q8H #21 tablet Levofloxacin [Levaquin 750 mg Tablet] 750 mg PO DAILY #7 tablet Home Medications: Allopurinol [Zyloprim 300 mg Tablet] 300 mg PO DAILY 02/08/19 Amlodipine Besylate [Norvasc 10 mg Tablet] 10 mg PO DAILY 02/08/19 Meloxicam [Mobic] 7.5 mg PO DAILYP PRN 02/08/19 Metoprolol Succinate [Toprol Xl 50 mg Tab.sr] 50 mg PO QHS 02/08/19 Levofloxacin [Levaquin 750 mg Tablet] 750 mg PO DAILY #7 tablet 02/09/19 Losartan Potassium [Cozaar] 25 mg PO DAILY #60 tablet 02/09/19 Metronidazole [Flagyl 500 mg Tablet] 500 mg PO Q8H #21 tablet 02/09/19 History of Present Illiness History of Present Illness: KEN ARELLANO is a 58 year old male with a past medical history of descending colon diverticulosis diagnosed on CT and colonoscopy, history of diverticulitis, gout, hypertension, GERD and back surgeries who presented with left lower quadrant pain. Patient says that he was apparently fine until yesterday around 4 PM when he dev eloped sharp/achy left lower quadrant pain and tenderness. He says that this was the same pain that he had in 2016 when he was diagnosed to have acute diverticulitis. He denies diarrhea or bloody stools. No nausea or vomiting. He did report of having fever and chills at home. He denies lower urinary tract symptoms. He was given fentanyl in the ER but still complaining of pain and tenderness. CT of the abdomen and pelvis did not show acute diverticulitis. Upon examination, he does have localized direct tenderness in the left lower quadrant. He also was found to be febrile in the ER and was also noted to have leukocytosis. Suspect beginning/early acute diverticulitis. Hospital Course Hospital Course: This is a 58-year-old male who was admitted for likely beginning/early acute diverticulitis. He was started on IV Zosyn and IV fluids. He significantly improved overnight. He is abdominal pain and tenderness resolved on day of discharge. He will be discharged on levofloxacin and Flagyl. Physical Exam Vital Signs: Temp Pulse Resp BP Pulse Ox 98.3 F 72 15 142/75 H 99 02/09/19 12:22 02/09/19 12:22 02/09/19 12:22 02/09/19 12:22 02/09/19 12:22 Intake & Output 02/08/19 02/09/19 02/10/19 06:59 06:59 06:59 Intake Total 2520 100 Balance 2520 100 Weight 300 lb 4.313 oz General appearance: PRESENT: no acute distress, well-developed, well-nourished Head exam: PRESENT: atraumatic, normocephalic Eye exam: PRESENT: conjunctiva pink, EOMI, PERRLA. ABSENT: scleral icterus Ear exam: PRESENT: normal external ear exam Mouth exam: PRESENT: moist, tongue midline Neck exam: ABSENT: carotid bruit, JVD, lymphadenopathy, thyromegaly Respiratory exam: PRESENT: clear to auscultation josé luis. ABSENT: rales, rhonchi, wheezes Cardiovascular exam: PRESENT: RRR. ABSENT: diastolic murmur, rubs, systolic murmur Pulses: PRESENT: normal dorsalis pedis pul GI/Abdominal exam: PRESENT: normal bowel sounds, soft. ABSENT: distended, guarding, mass, organolmegaly, rebound, tenderness Rectal exam: PRESENT: deferred Extremities exam: PRESENT: full ROM. ABSENT: calf tenderness, clubbing, pedal edema Neurological exam: PRESENT: alert, awake, oriented to person, oriented to place, oriented to time, oriented to situation, CN II-XII grossly intact. ABSENT: motor sensory deficit Results Laboratory Results: WBC 9.0 10^3/uL (4.0-10.5) 02/09/19 10:22 RBC 4.11 10^6/uL (4.35-5.55) L 02/09/19 10:22 Hgb 14.3 g/dL (13.5-17.0) 02/09/19 10:22 Hct 41.4 % (37.9-51.0) 02/09/19 10:22 MCV 101 fl (80-97) H 02/09/19 10:22 MCH 34.7 pg (27.0-33.4) H 02/09/19 10:22 MCHC 34.5 g/dL (32.0-36.0) 02/09/19 10:22 RDW 14.3 % (11.5-14.0) H 02/09/19 10:22 Plt Count 185 10^3/uL (150-450) 02/09/19 10:22 Lymph % (Auto) 12.5 % (13-45) L 02/09/19 10:22 [place] % (Auto) 9.5 % (3-13) 02/09/19 10:22 Eos % (Auto) 1.9 % (0-6) 02/09/19 10:22 Baso % (Auto) 0.6 % (0-2) 02/09/19 10:22 Absolute Neuts (auto) 6.8 10^3/uL (1.7-8.2) 02/09/19 10:22 Absolute Lymphs (auto) 1.1 10^3/uL (0.5-4.7) 02/09/19 10:22 Absolute Monos (auto) 0.9 10^3/uL (0.1-1.4) 02/09/19 10:22 Absolute Eos (auto) 0.2 10^3/uL (0.0-0.6) 02/09/19 10:22 Absolute Basos (auto) 0.1 10^3/uL (0.0-0.2) 02/09/19 10:22 Total Counted 100 02/08/19 09:38 Seg Neutrophils % 75.5 % (42-78) 02/09/19 10:22 Seg Neuts % (Manual) 76 % (42-78) 02/08/19 09:38 Band Neutrophils % 1 % (3-5) L 02/08/19 09:38 Lymphocytes % (Manual) 10 % (13-45) L 02/08/19 09:38 Monocytes % (Manual) 11 % (3-13) 02/08/19 09:38 Eosinophils % (Manual) 1 % (0-6) 02/08/19 09:38 Basophils % (Manual) 1 % (0-2) 02/08/19 09:38 Abs Neuts (Manual) 11.6 10^3/uL (1.7-8.2) H 02/08/19 09:38 Abs Lymphs (Manual) 1.5 10^3/uL (0.5-4.7) 02/08/19 09:38 Abs Monocytes (Manual) 1.7 10^3/uL (0.1-1.4) H 02/08/19 09:38 Absolute Eos (Manual) 0.2 10^3/uL (0.0-0.6) 02/08/19 09:38 Abs Basophils (Manual) 0.2 10^3/uL (0.0-0.2) 02/08/19 09:38 Platelet Comment ADEQUATE 02/08/19 09:38 Polychromasia SLIGHT 02/08/19 09:38 Anisocytosis SLIGHT 02/08/19 09:38 Macrocytosis 1+ 02/08/19 09:38 Sodium 137.6 mmol/L (137-145) 02/08/19 09:38 Potassium 4.9 mmol/L (3.6-5.0) 02/08/19 09:38 Chloride 100 mmol/L (98-107) 02/08/19 09:38 Carbon Dioxide 24 mmol/L (22-30) 02/08/19 09:38 Anion Gap 14 (5-19) 02/08/19 09:38 BUN 16 mg/dL (7-20) 02/08/19 09:38 Creatinine 0.82 mg/dL (0.52-1.25) 02/08/19 09:38 Est GFR ( Amer) > 60 (>60) 02/08/19 09:38 Est GFR (MDRD) Non-Af > 60 (>60) 02/08/19 09:38 Glucose 107 mg/dL (75-110) 02/08/19 09:38 Lactic Acid 1.1 mmol/L (0.7-2.1) 02/08/19 10:50 Calcium 10.1 mg/dL (8.4-10.2) 02/08/19 09:38 Total Bilirubin 0.6 mg/dL (0.2-1.3) 02/08/19 09:38 Direct Bilirubin 0.2 mg/dL (0.0-0.4) 02/08/19 09:38 Neonat Total Bilirubin Not Reportable 02/08/19 09:38 Neonat Direct Bilirubin Not Reportable 02/08/19 09:38 Neonat Indirect Bili Not Reportable 02/08/19 09:38 AST 54 U/L (17-59) 02/08/19 09:38 ALT 48 U/L (<50) 02/08/19 09:38 Alkaline Phosphatase 88 U/L (38-126) 02/08/19 09:38 Total Protein 7.8 g/dL (6.3-8.2) 02/08/19 09:38 Albumin 4.8 g/dL (3.5-5.0) 02/08/19 09:38 Lipase 117.6 U/L (23-300) 02/08/19 09:38 Urine Color YELLOW 02/08/19 09:36 Urine Appearance CLEAR 02/08/19 09:36 Urine pH 5.0 (5.0-9.0) 02/08/19 09:36 Ur Specific [place] 1.019 02/08/19 09:36 Urine Protein NEGATIVE mg/dL (NEGATIVE) 02/08/19 09:36 Urine Glucose (UA) NEGATIVE mg/dL (NEGATIVE) 02/08/19 09:36 Urine Ketones TRACE mg/dL (NEGATIVE) H 02/08/19 09:36 Urine Blood NEGATIVE (NEGATIVE) 02/08/19 09:36 Urine Nitrite NEGATIVE (NEGATIVE) 02/08/19 09:36 Urine Bilirubin NEGATIVE (NEGATIVE) 02/08/19 09:36 Urine Urobilinogen NEGATIVE mg/dL (<2.0) 02/08/19 09:36 Ur Leukocyte Esterase NEGATIVE (NEGATIVE) 02/08/19 09:36 Urine WBC (Auto) 0 /HPF 02/08/19 09:36 Urine RBC (Auto) 0 /HPF 02/08/19 09:36 U Hyaline Cast (Auto) 1 /LPF 02/08/19 09:36 Urine Mucus (Auto) RARE /LPF 02/08/19 09:36 Urine Ascorbic Acid NEGATIVE (NEGATIVE) 02/08/19 09:36 Impressions: Abdomen/Pelvis CT 02/08/19 11:16 IMPRESSION: Fatty infiltrated liver. Hepatomegaly. No other significant findings in the abdomen or pelvis. Stroke Is this a Stroke Patient?: No Acute Heart Failure - Is this a Heart Failure Patient?: No
== END 2019-02-09 12:20 | disposition home or self-care (01) ==
LOC: ER 09:07 → EH 14:05 → 4N 15:43
PROVIDERS: ADMIT Internal Medicine; ATTEND Internal Medicine
DX: K57.92 Diverticulitis of intestine, part unspecified, without perforation or abscess without bleeding (principal); I10 Essential (primary) hypertension; M10.9 Gout, unspecified; Z79.899 Other long term (current) drug therapy; Z87.19 Personal history of other diseases of the digestive system; Z88.3 Allergy status to other anti-infective agents
CPT/HCPCS: 96376; 99285; 96375; 96365; 36415 ×2; 87040; 83690; 85025 ×2; 80053; 81001; 83605; 74177; G0378 ×3; J1644; J3010; J1885; J2270; J3490 ×2; J7050 ×2; J7030; J2543 ×2